=== PATIENT | female | born 1995 | race Caucasian/White ===

== ENCOUNTER 2018-03-30 00:48 | Emergency (ER) | payer OTHER ==
[~2018-03-30] VITALS: Ht 154.9 cm; Wt 86.2 kg
[2018-03-30 00:53] VITALS: Ht 154.9 cm; Wt 86.2 kg
[2018-03-30 01:20] LABS: CALCIUM 8.6 mg/dL (8.5-10.1); CARBON DIOXIDE 27.3 mmol/L (21-32); CHLORIDE SERUM 104 mmol/L (98-107); CREATININE SERUM 0.8 mg/dL (0.6-1.0); GFR1 > 60 mL/min; GLUCOSE SERUM 108 mg/dL (74-106); POTASSIUM SERUM 3.4 mmol/L (3.5-5.1); SODIUM SERUM 137 mmol/L (136-145)
[2018-03-30 01:24] LABS: ALKALINE PHOSPHATASE 140 U/L (46-116); ALT/SGPT 17 U/L (14-59); AST/SGOT 16 U/L (15-37); BILIRUBIN TOTAL 0.19 mg/dL (0.20-1.00); LIPASE 116 IU/L (73-393); TOTAL PROTEIN, SERUM 6.9 g/dL (6.4-8.2)
[2018-03-30 01:25] LABS: ALBUMIN 3.2 g/dL (3.4-5.0)
[2018-03-30 01:29] LABS: BASOPHIL % 0.6 % (0-2); PLATELET COUNT 187 x10^3mcL (130-400); RED CELL DISTRIBUTION WIDTH 12.7 % (11.5-14.5)
[2018-03-30 02:22] LABS: microscopic required? YES; urine erythrocyte TRACE (NEGATIVE)
[2018-03-30 08:11] VITALS: BP 102/60
== END 2018-03-30 08:11 | disposition home or self-care (01) ==
LOC: ED 00:48
PROVIDERS: Emergency Medicine
DX: N39.0 Urinary tract infection, site not specified (principal); R07.89 Other chest pain; N93.9 Abnormal uterine and vaginal bleeding, unspecified
CPT/HCPCS: J0696; J1885; J2270; J2405; J7030; Q0092